=== PATIENT | female | born 1950 | race African-American/Black ===

== ENCOUNTER 2018-04-25 11:00 | Outpatient (RCR) | payer MEDICARE ==
[~2018-04-25 11:00] MED LIST: ASPIRIN325 MG PO; AZOPT10 ML OU; GLIPIZIDE5 MG PO; LISINOPRIL10 MG PO; NORCO 7.5-3251 EACH PO; TIMOPTIC 0.5%1 EACH OU; TRAVATAN Z5 ML OU; TYLENOL PO; TYLENOL WITH C1 EACH PO
== END 2018-04-27 ==
LOC: PT 11:00
PROVIDERS: ATTEND Specialist
DX: Z96.641 Presence of right artificial hip joint (principal); M54.41 Lumbago with sciatica, right side

== ENCOUNTER → 2018-05-25 | Outpatient (RCR) | payer MEDICARE | LOC: PT 05-09 10:52 | PROVIDERS: ATTEND Specialist | DX: Z96.641 Presence of right artificial hip joint (principal); M54.41 Lumbago with sciatica, right side; M25.551 Pain in right hip; M25.561 Pain in right knee; M25.651 Stiffness of right hip, not elsewhere classified; M79.651 Pain in right thigh; M62.81 Muscle weakness (generalized); R26.2 Difficulty in walking, not elsewhere classified | CPT/HCPCS: 97139 ==

== ENCOUNTER 2018-06-08 13:00 | Outpatient (RCR) | payer MEDICARE | END 2018-06-25 | LOC: PT 13:00 | PROVIDERS: ATTEND Specialist | DX: Z96.641 Presence of right artificial hip joint (principal); M54.41 Lumbago with sciatica, right side ==